=== PATIENT | female | born 1990 | race Asian ===

== ENCOUNTER 2023-12-15 14:12 | Emergency (ER) | payer OTHER, SELFPAY ==
[2023-12-15] VITALS (11 sets, daily range): BP systolic 148–202; BP diastolic 73–109; PULSE 53–76; RESP 14–18; TEMP 36.1; O2SAT 97–99; BMI 37.0
--- NOTE | 2023-12-15 14:26 | EKG_ITS ---
[address] [address] Test Date: 2023-12-15 Pat Name: Nelsy Goodwin Department: Room: Gender: Female Entry Writer: ARNIE : 1990 Requested By: Order Number: [id number] Reading MD: Mark Guillory MD Measurements Intervals [place] Rate: 54 P: 37 VA: 136 QRS: 7 QRSD: 92 T: -16 QT: 392 QTc: 371 Interpretive Statements Sinus bradycardia with sinus arrhythmia Minimal voltage criteria for LVH, may be normal variant ( R in aVL ) T wave abnormality, consider inferior ischemia Electronically Signed On 12-16-2023 8:26:06 PDT by Mark Guillory MD
--- NOTE | 2023-12-15 16:03 | ED_ITS ---
HPI - Chest Pain General Chief Complaint: Chest Pain Stated Complaint: Chest Pain, SoB Time Seen by Provider: 12/15/23 15:47 Mode of arrival: Family Vehicle History of Present Illness HPI narrative: 33-year-old individual, pronouns he him, with a history of polycystic ovary disease, depression, hypertension started on lisinopril with 1st dose today, noticed that he was having some chest pain and pressure blood pressure was elevated in the 210/110 range and he comes in for further evaluation. he notes that over the last 2 weeks he is actually started exercising. he spoke with his physician earlier today lisinopril was started plans for follow up or upcoming. he has never had this type of chest pressure previously, it started at rest. Has almost essentially resolved by the time he is in the emergency department. No associated dyspnea, abdominal pain or vomiting. Related Data Home Medications Medication Instructions Recorded Confirmed bupropion HCl PO 07/14/21 07/14/21 cholecalciferol (vitamin D3) PO 07/14/21 07/14/21 lisinopril 10 mg tablet 10 mg PO DAILY 07/14/21 07/14/21 pramipexole 3 mg tablet,extended 3 mg PO DAILY 07/14/21 07/14/21 release 24 hr propranolol 60 mg capsule,24 60 mg PO DAILY 07/14/21 07/14/21 hr,extended release Allergies Allergy/AdvReac Type Severity Reaction Status Date / Time azithromycin [From Zithromax] AdvReac Mild hives Verified 12/15/23 14:18 Review of Systems Review of Systems Narrative: Pertinent positive and negative findings as per HPI Patient History Medical History HTN (hypertension) Thalassemia PCOS (polycystic ovarian syndrome) Transgender Social History Smoking Status: Never smoker Smoking Status: Never smoker alcohol intake frequency: a few times a month Substance Use Type: does not use Exam Initial Vital Signs Initial Vital Signs: Vital Signs Temperature 97 F L 12/15/23 14:14 Pulse Rate 58 L 12/15/23 14:14 Respiratory Rate 16 12/15/23 14:14 Blood Pressure 202/109 H 12/15/23 14:14 Pulse Oximetry 99 12/15/23 14:14 Oxygen Delivery Method Room Air 12/15/23 14:14 General: Healthy appearing, in no acute distress. Able to give a complete and coherent history. Well-nourished well-developed HEENT: Moist mucous membranes, normal sclera with reactive pupils, Respiratory: Lungs are clear to auscultation, no wheezing no rales no rhonchi. Full and symmetrical air movement Cardiac: Regular rate and rhythm no murmurs no bruits Abdomen: Soft, nontender, good bowel tones, no flank pain Skin: Warm and dry, no rashes Neurologic: Grossly neurologically intact with no obvious asymmetries or abnormalities Extremities: No trauma, well perfused Psych: Cooperative, appropriate insight and affect Course Orders Ordered: ED Orders 12/15/23 14:34 CBC Auto Diff [Complete Blood Count AUTO DIFF] Stat 12/15/23 16:00 CMP [Comprehensive Metabolic Panel] Stat 12/15/23 16:03 XR chest 1V Stat EKG-12 Lead Stat Vital Signs Vital signs: Vital Signs - 8 hr 12/15/23 14:14 12/15/23 14:31 12/15/23 14:32 Temperature 97 F L Pulse Rate 58 L 62 Respiratory Rate 16 16 Blood Pressure 202/109 H 197/109 H Pulse Oximetry 99 Oxygen Delivery Method Room Air 12/15/23 14:32 Temperature Pulse Rate 65 Respiratory Rate 16 Blood Pressure Pulse Oximetry Oxygen Delivery Method MDM - Chest Pain Lab Data 12/15/23 14:34 12/15/23 16:00 Labs: Lab Results 12/15/23 12/15/23 Range/Units 14:34 16:00 WBC 6.9 (4.5-11.0) X10^3/uL RBC 7.58 H (4.0-5.2) X10^6/uL Hgb 12.9 (12.0-16.0) g/dL Hct 41.9 (36-46) % MCV 55.3 L (80-100) fL MCH 17.1 L (26-34) PG MCHC 30.8 (30-36) % RDW 21.9 H (11.6-14.8) % Plt Count 325 (150-400) X10^3/uL Neut % (Auto) 45.7 L (50-75) % Lymph % (Auto) 32.4 (25-40) % [place] % (Auto) 18.3 H (3-14) % Eos % (Auto) 2.4 (2-4) % Baso % (Auto) 1.2 (0-2) % Neut # (Auto) 3100 (4866-9828) /uL Lymph # (Auto) 2200 (2701-6881) /uL [place] # (Auto) 1300 H (0-900) /uL Eos # (Auto) 200 (0-450) /uL Baso # (Auto) 100 (0-100) /uL RBC Morphology See below Anisocytosis 3+ H Sodium 134 L (137-145) mmol/L Potassium 3.9 (3.4-5.1) mmol/L Chloride 101 (98-107) mmol/L Carbon Dioxide 23 (22-32) mmol/L BUN 12 (7-17) mg/dL Creatinine 0.89 (0.52-1.04) mg/dL Estimated GFR > 60 (>60) mL/min BUN/Creatinine Ratio 13.5 (6-22) Glucose 100 (70-100) mg/dL Calcium 9.4 (8.4-10.2) mg/dL Total Bilirubin 0.9 (0.2-1.3) mg/dL AST 51 H (14-36) IU/L ALT 36 H (<35) IU/L Alkaline Phosphatase 47 (38-126) U/L Total Protein 8.3 H (6.3-8.2) g/dL Albumin 4.5 (3.5-5.0) g/dL Globulin 3.8 (1.7-4.1) g/dL Albumin/Globulin Ratio 1.2 (1.0-2.8) MDM Narrative Medical decision making narrative: CC: Hypertension with chest pain Complicating co-morbidities: Recently diagnosed hypertension started on lisinopril, polycystic ovarian disease, transgender female to male pronouns he him Data collected from: patient, mother Differential considered: Cardiac chest pain, pleuritic chest pain, hypertensive urgency, anxiety Exam documented above, pertinent findings include: Exam is benign Lab Test results independently reviewed as above. Pertinent findings: CBC is unremarkable Chemistries are reassuring Independently reviewed EKG: EKG shows sinus bradycardia at a rate of 54. Normal intervals, normal axis no acute ischemic changes Imaging studies independently reviewed: Chest x-ray shows no significant cardiomegaly Discussion: 33-year-old individual with elevated blood pressure earlier today. He did take his 1st dose of lisinopril. Blood pressure on repeat is 140/78 and he is feeling significantly improved. EKG is unremarkable lab work is reassuring. Exam is benign. Reassurance is given recommended that he continue with current doses of lisinopril, daily blood pressure readings to review with his primary care physician. Reviewed reasons to return to the emergency department including significantly elevated blood pressure and associated symptoms. Questions are answered there is no indication for hospitalization at this time and he is safe for discharge Discharge Plan Departure Patient Disposition: Home Clinical Impression: Atypical chest pain, Transgender HTN (hypertension) Qualifiers: Hypertension type: primary hypertension Qualified Code(s): I10 - Essential (primary) hypertension Instructions: DI for Atypical Chest Pain Activity Restrictions/Additional Instructions: Thank you for coming in today Your blood work was quite reassuring. I am seeing no evidence of enlarged heart, liver or kidney abnormalities and no suggestion of acute heart attack Your blood pressures come down nicely after your lisinopril dose Please continue your current medications as well as your new exercise program, the exercise matters as much(actually probably more) as the medications. If you find that you are getting worse or develop any new symptoms, please feel free to return to the emergency department for further evaluation. Prescriptions: No Action propranolol 60 mg capsule,extended release 24 hr 60 mg PO DAILY bupropion HCl PO pramipexole 3 mg tablet extended release 24 hr 3 mg PO DAILY lisinopril 10 mg tablet 10 mg PO DAILY cholecalciferol (vitamin D3) PO Stand Alone Forms: Patient Portal/API
--- NOTE | 2023-12-15 16:03 | DI.RAD.S_ITS ---
PROCEDURE: XR CHEST 1V INDICATIONS: chest pain TECHNIQUE: One view of the chest was acquired. COMPARISON: None. FINDINGS: Surgical changes and devices: None. Lungs and pleura: Lungs are clear. No pleural effusions or pneumothorax. Mediastinum: Mediastinal contours appear normal. Heart size is normal. Bones and chest wall: No suspicious bony lesions. Overlying soft tissues appear unremarkable. IMPRESSION: No acute cardiopulmonary abnormality is seen. Dictated by: Jesus Gould M.D. on 12/15/2023 at 16:34 Approved by: Jesus Gould M.D. on 12/15/2023 at 16:34
[2023-12-15 16:29] LABS: Add Manual Diff / Slide Review NO; Basophils Absolute Auto 100 /uL (0-100); Basophils Percent Auto 1.2 % (0-2); Eosinophils Absolute Auto 200 /uL (0-450); Eosinophils Percent Auto 2.4 % (2-4); Hematocrit 41.9 % (36-46); Hemoglobin 12.9 g/dL (12.0-16.0); Lymphocytes Absolute Auto 2200 /uL (1100-4500); Lymphocytes Percent Auto 32.4 % (25-40); Mean Corpuscular HGB Conc 30.8 % (30-36); Mean Corpuscular Hemoglobin 17.1 PG (26-34); Mean Corpuscular Volume 55.3 fL (80-100); Monocytes Absolute Auto 1300 /uL (0-900); Monocytes Percent Auto 18.3 % (3-14); Neutrophils Absolute Auto 3100 /uL (1500-7000); Neutrophils Percent Auto 45.7 % (50-75); Platelet Count 325 X10^3/uL (150-400); Red Cell Distribution Width 21.9 % (11.6-14.8); White Blood Cell Count 6.9 X10^3/uL (4.5-11.0)
[2023-12-15 16:30] LABS: Red Blood Cell Count 7.58 X10^6/uL (4.0-5.2)
[2023-12-15 16:40] LABS: Anisocytosis 3+
[2023-12-15 16:45] LABS: Alanine Aminotransferase 36 IU/L (<35); Albumin 4.5 g/dL (3.5-5.0); Albumin Globulin Ratio 1.2 (1.0-2.8); Alkaline Phosphatase 47 U/L (38-126); Aspartate Aminotransferase 51 IU/L (14-36); BUN Creatinine Ratio 13.5 (6-22); Bilirubin Total 0.9 mg/dL (0.2-1.3); Blood Urea Nitrogen 12 mg/dL (7-17); Calcium 9.4 mg/dL (8.4-10.2); Carbon Dioxide 23 mmol/L (22-32); Chloride 101 mmol/L (98-107); Estimated Glomerular Filt Rate > 60 mL/min (>60); Globulin 3.8 g/dL (1.7-4.1); Glucose 100 mg/dL (70-100); HEMOLYSIS 35 (0-50); Potassium 3.9 mmol/L (3.4-5.1); Sodium 134 mmol/L (137-145); Total Protein 8.3 g/dL (6.3-8.2)
== END 2023-12-15 17:21 | disposition home or self-care (01) ==
PROVIDERS: Emergency Provider Emergency Medicine
DX: R07.89 Other chest pain (principal); I10 Essential (primary) hypertension; F64.0 Transsexualism
CPT/HCPCS: 36415; 71045; 80053; 85025; 93005; 93010; 99283; 99284